=== PATIENT | male | born 1995 | race Caucasian/White ===

== ENCOUNTER 2019-07-13 01:28 | Emergency (ER) | payer OTHER ==
[~2019-07-13] VITALS: Ht 170.2 cm; Wt 53.1 kg
[2019-07-13 02:34] VITALS: BP 128/74
== END 2019-07-13 02:47 | disposition home or self-care (01) ==
LOC: ER 01:28
DX: S61.512A Laceration without foreign body of left wrist, initial encounter (principal); S61.412A Laceration without foreign body of left hand, initial encounter; W22.8XXA Striking against or struck by other objects, initial encounter; Y93.89 Activity, other specified; Y92.89 Other specified places as the place of occurrence of the external cause; Y99.8 Other external cause status

== ENCOUNTER 2019-07-14 00:15 | Emergency (ER) | payer OTHER ==
[~2019-07-14] VITALS: Ht 165.1 cm; Wt 53.1 kg
[2019-07-14 01:30] VITALS: BP 140/89
== END 2019-07-14 01:30 | disposition home or self-care (01) ==
LOC: ER 00:15
DX: L03.114 Cellulitis of left upper limb (principal); F17.210 Nicotine dependence, cigarettes, uncomplicated

== ENCOUNTER 2019-07-30 15:25 | Emergency (ER) | payer OTHER ==
[~2019-07-30] VITALS: Ht 172.7 cm; Wt 55.8 kg
[2019-07-30 15:26] VITALS: BP 108/55
== END 2019-07-30 15:47 | disposition home or self-care (01) ==
LOC: ER 15:25
DX: S61.512D Laceration without foreign body of left wrist, subsequent encounter (principal); F17.210 Nicotine dependence, cigarettes, uncomplicated; W22.8XXD Striking against or struck by other objects, subsequent encounter